=== PATIENT | female | born 1980 | race Caucasian/White ===

== ENCOUNTER 2016-03-16 07:11 | Inpatient (IN) | payer OTHER ==
[~2016-03-16] VITALS: Ht 180.3 cm; Wt 161.8 kg
[2016-04-25] VITALS (17 sets, daily range): BP systolic 86–129; BP diastolic 53–75; PULSE 42–83; TEMP 97.4–97.5
[2016-04-25 06:24] LABS: HEMATOCRIT 37.2 % (37.0-47.0); HEMOGLOBIN 12.6 g/dl (12.5-16.0); MEAN CELL VOLUME 92 fl (80.0-100.0); MEAN CORPUSCULAR HEMOGLOBIN 31 pg (27.0-31.0); MEAN CORPUSCULAR HGB CONC 34 g/dl (33.0-37.0); MEAN PLATELET VOLUME 9.6 fl (7.4-10.4); PLATELET COUNT 160 K/mm3 (130-400); RED BLOOD COUNT 4.06 M/mm3 (4.10-5.30); WHITE BLOOD COUNT 7.7 K/mm3 (4.8-10.8)
[2016-04-25 06:38] LABS: ADD PATHOLOGY DIFF REVIEW NO
[2016-04-25 06:50] LABS: BAND 10 % (0-10); NEUTROPHILS 57 % (42.0-75.2); TOTAL CELLS COUNTED 100
[2016-04-25] MEDS ORDERED: PRENATAL1 TA7 PO (07:15)
[2016-04-26 02:15] VITALS: BP 122/61; PULSE 88; TEMP 98.7
[2016-04-26 07:15] LABS: HEMATOCRIT 34.8 % (37.0-47.0); HEMOGLOBIN 11.4 g/dl (12.5-16.0)
[2016-04-26 07:29] VITALS: BP 100/63; PULSE 78; TEMP 97.2
[2016-04-26 16:30] VITALS: BP 112/56; PULSE 96; TEMP 97.8
[2016-04-26 20:00] VITALS: BP 120/72; PULSE 80; TEMP 98.9
[2016-04-27 07:45] VITALS: BP 101/47; PULSE 65; TEMP 97.7
[2016-04-27] MEDS ORDERED: PERCOCET 325 MG1 TA2 PO (08:59)
[2016-04-27] MEDS ORDERED: IBU600 MG PO (08:59)
[2016-04-27] MEDS ORDERED: AMBIEN 5MG TABLE5 MG PO (08:59)
== END 2016-04-27 13:30 | disposition home or self-care (01) | DRG 765 ==
LOC: EDSTATUS 07:11 → LDRO 09:12 → OB 04-25 05:30 → LDR 04-25 07:48 → OB 04-27 13:30
PROVIDERS: Obstetrics & Gynecology
PROC: 10D00Z1 Extraction of Products of Conception, Low, Open Approach (ICD-10-PCS; principal; 2016-04-25)
PROC: 0UB70ZZ Excision of Bilateral Fallopian Tubes, Open Approach (ICD-10-PCS; 2016-04-25)
DX: O34.211 Maternal care for low transverse scar from previous cesarean delivery (principal); O99.214 Obesity complicating childbirth; Z68.42 Body mass index [BMI] 45.0-49.9, adult; O40.3XX0 Polyhydramnios, third trimester, not applicable or unspecified; N85.8 Other specified noninflammatory disorders of uterus; O99.824 Streptococcus B carrier state complicating childbirth; O13.4 Gestational [pregnancy-induced] hypertension without significant proteinuria, complicating childbirth; Z3A.38 38 weeks gestation of pregnancy; Z37.0 Single live birth; Z40.09 Encounter for prophylactic removal of other organ
CPT/HCPCS: J0690; J1885; J2210; J2270; J2370; J2405; J2590; J2765; J7120